=== PATIENT | male | born 1970 | race Caucasian/White ===

== ENCOUNTER 2020-09-22 22:32 | Emergency (ER) | payer OTHER ==
[2020-09-22] MEDS ORDERED: PENICILLIN V P250 M1 PO (23:06)
== END 2020-09-22 23:16 | disposition home or self-care (01) ==
LOC: FER 22:32
DX: K02.9 Dental caries, unspecified (principal); K03.81 Cracked tooth; E11.9 Type 2 diabetes mellitus without complications; Z88.6 Allergy status to analgesic agent
CPT/HCPCS: 99282